=== PATIENT | female | born 1985 | race African-American/Black ===

== ENCOUNTER 2018-10-25 06:18 | Day surgery (SDC) | payer OTHER ==
[2018-10-24 15:06] VITALS: BMI 24.9
[2018-10-25] MEDS ORDERED: BACITRACIN 15 GM TUBE TOPICAL OINTMENT ONE (07:16)
[2018-10-25] MEDS ORDERED: EPINEPHrine/PF 1 MG/1 ML (1:1,000) AMPULE ONE (07:16)
[2018-10-25] MEDS ORDERED: LIDOCAINE HCL 1%, 10 MG/ML (20ML VIAL) ONE ×2 (07:16→08:44)
[2018-10-25] MEDS ORDERED: LIDOCAINE 1%-EPI 1:100,000 30 ML MDV IJ ONE (07:16)
[2018-10-25] MEDS ORDERED: fentaNYL CITRATE 250 MCG/5 ML VIAL ONE ×2 (07:48→09:39)
[2018-10-25] MEDS ORDERED: ROCURONIUM BROMIDE 50 MG/5 ML VIAL ONE ×2 (07:48→09:37)
[2018-10-25] MEDS ORDERED: DEXAMETHASONE SOD PHOSPHATE 4 MG/1 ML VIAL ONE (07:48)
[2018-10-25] MEDS ORDERED: SUCCINYLCHOLINE CHLORIDE 200 MG/10 ML VIAL ONE ×2 (07:48)
[2018-10-25] MEDS ORDERED: ceFAZolin SODIUM 1 GM VIAL ONE (07:48)
[2018-10-25] MEDS ORDERED: PROPOFOL 20 ML ONE ×3 (07:48→07:49)
[2018-10-25] MEDS ORDERED: MIDAZOLAM HCL 2 MG/2 ML SINGLE DOSE VIAL ONE (07:49)
[2018-10-25] MEDS ORDERED: SCOPOLAMINE HYDROBROMIDE 1 PATCH PATCH.TD72 ONE (07:58)
[2018-10-25] MEDS ORDERED: DESFLURANE GAS 240 ML BOTTLE IH ONE (08:02)
--- NOTE | 2018-10-25 08:12 | HP ---
History & Physical Update - History History: No Change - Physical Physical: No Change - Assessment Assessment: No Change - Plan Plan: No Change (Full H&P in chart from 10/24/18)
[2018-10-25] MEDS ORDERED: ceFAZolin SODIUM 1 GM VIAL IVPB ONE (08:42)
[2018-10-25] MEDS ORDERED: oxyCODONE HCL 5 MG TABLET PO PRN ×2 (11:53)
[2018-10-25] MEDS ORDERED: ONDANSETRON 4 MG/2 ML VIAL IVPUSH PRN (11:53)
[2018-10-25] MEDS ORDERED: LACTATED RINGERS SOLUTION 1,000 ML IV SCH (12:00)
[2018-10-25] MEDS ORDERED: NEOSTIGMINE METHYLSULFATE 0.5 MG/ML - 10 ML MDV ONE (12:26)
[2018-10-25] MEDS ORDERED: GLYCOPYRROLATE 0.2 MG/1 ML VIAL ONE (12:27)
--- NOTE | 2018-10-25 13:11 | OP ---
Operative Note - Note: Operative Date: 10/25/18 Pre-Operative Diagnosis: Symptomatic Macromastia Operation: Bilateral Reduction Mammaplasty Post-Operative Diagnosis: Same as Pre-op Surgeon: Ilir June Events Assistant: Michael Greenberg Anesthesia: General Drains & Tubes with Location: [place] Drains x 2 Operative Report Dictated: Yes
[2018-10-25] MEDS ORDERED: oxyCODONE HCL 5 MG TABLET ONE (15:26)
[2018-10-25 15:50] VITALS: TEMP 97.8
[2018-10-25 18:06] VITALS: BP 120/60; PULSE 64
--- NOTE | 2018-10-26 11:38 | SURG ---
Surgery Senior Visual Designer Note Senior Visual Designer: Michael Greenberg PA-C Date of Service: 10/26/18 Diagnosis: Symptomatic Macromastia Procedure: Bilateral Reduction Mammaplasty I was present for the entirety of the operative procedure. For further detail, please refer to operative report. Visit type - Case Type Case Type: Scheduled - Emergency Emergency Visit: No - New patient This patient is new to me today: Yes Date on this admission: 10/26/18 - Critical Care Critical Care patient: No
== END 2018-10-25 18:08 | disposition home or self-care (01) ==
LOC: JASU-SURG 06:18
PROVIDERS: ATTEND Plastic Surgery
PROC: 0HBV0ZZ Excision of Bilateral Breast, Open Approach (ICD-10-PCS; principal; 2018-10-25 08:00)
DX: N62 Hypertrophy of breast (principal)
CPT/HCPCS: 84703; 88305-TC; 94760